=== PATIENT | female | born 1965 | race Caucasian/White ===

== ENCOUNTER 2019-12-08 11:33 | Inpatient (IN) | payer BC, OTHER ==
[2019-12-08] MEDS ORDERED: Sodium Chloride 0.9% 10 ML Syringe FLUSH PRN (12:09)
--- NOTE | 2019-12-08 12:21 | EDM.PDOC ---
ED HPI GENERAL MEDICAL PROBLEM - General Chief Complaint: Lower Extremity Injury/Pain Stated Complaint: R FOOT SKIN COMPLAINT Time Seen by Provider: 12/08/19 11:42 Source of Information: Reports: Patient History Limitations: Reports: No Limitations - History of Present Illness INITIAL COMMENTS - FREE TEXT/NARRATIVE: Patient is a 54-year-old female who presents with complaints of a diabetic foot ulcer to the medial aspect of her right great toe. She states she first noticed the area approximately 1 week ago. At that time it was a small purple blister on the posterior aspect of the toe. Since that time it has been getting progressively larger. It has doubled in size since this Wednesday. She does have some diabetic neuropathy to that toe. States she chronically has a callus in the area of the infection. The area is not painful as she has limited sensation. She denies any fever or chills, however she did vomit one time yesterday after a hypoglycemic episode. She has been feeling more fatigued and achy for the last week, however would not describe it as flulike symptoms. Her blood sugars have been running higher than normal over the last week. 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 slt Right Foot Pain Score (Numeric/FACES): 2 - Related Data Allergies Allergy/AdvReac Type Severity Reaction Status Date / Time codeine Allergy Severe Nausea and Verified 12/08/19 11:45 Vomiting Home Meds: Home Meds Adalimumab [Humira] 40 units INJECT ASDIRECTED 12/08/19 [History] Cetirizine HCl [Zyrtec] 10 mg PO DAILY 12/08/19 [History] Diclofenac Sodium/Misoprostol [Arthrotec 50 mg-200 Mcg Tab] 1 tab PO BID [History] Ezetimibe 10 mg PO DAILY 12/08/19 [History] Insulin Degludec [Tresiba] 80 units INJECT BEDTIME 12/08/19 [History] Insulin Lispro [Humalog] 1 injection INJECT TID 12/08/19 [History] Levothyroxine 175 mcg PO DAILY 12/08/19 [History] Rosuvastatin [Crestor] 10 mg PO DAILY 12/08/19 [History] estradioL [Estradiol] 2 mg PO DAILY 12/08/19 [History] Past Medical History Cardiovascular History: Reports: High Cholesterol Endocrine/Metabolic History: Reports: Diabetes, Type II - Past Surgical History GI Surgical History: Reports: Cholecystectomy Female Surgical History: Reports: Hysterectomy Musculoskeletal Surgical History: Reports: Other (See Below) Other Musculoskeletal Surgeries/Procedures:: rotator cuff surgery Social & Family History - Tobacco Use Smoking Status *Q: Never Smoker - Caffeine Use Caffeine Use: Reports: Coffee - Recreational Drug Use Recreational Drug Use: No Review of Systems - Review of Systems Review Of Systems: See Below Constitutional: Denies: Chills, Fever Eyes: Reports: No Symptoms Ears: Reports: No Symptoms Nose: Reports: No Symptoms Mouth/Throat: Reports: No Symptoms Respiratory: Reports: No Symptoms Cardiovascular: Reports: No Symptoms GI/Abdominal: Reports: Nausea, Vomiting. Denies: Abdominal Pain, Diarrhea Genitourinary: Reports: No Symptoms Musculoskeletal: Reports: No Symptoms Skin: Reports: Erythema (Right great toe), Wound (Right great toe) Neurological: Reports: No Symptoms Psychiatric: Reports: No Symptoms ED EXAM, GENERAL - Physical Exam Exam: See Below Exam Limited By: No Limitations General Appearance: Alert, WD/WN, No Apparent Distress Respiratory/Chest: No Respiratory Distress, Lungs Clear, Normal Breath Sounds, No Accessory Muscle Use, Chest Non-Tender Cardiovascular: Normal Peripheral Pulses, Regular Rate, Rhythm, No Edema, No Gallop, No JVD, No Murmur, No Rub Extremities: Other (3 cm x 6 cm purple, blistered, diabetic ulcer to the lateral aspect of the right great toe. Erythema extending approximately 3 cm proximal to the blister.) Psychiatric: Normal Affect, Normal Mood Skin Exam: Warm, Dry, Intact, Normal Color, No Rash Course - Vital Signs Last Recorded V/S: Last Vital Signs Temp 98.4 F 12/08/19 11:57 Pulse 94 12/08/19 11:57 Resp 20 12/08/19 11:57 BP 144/80 H 12/08/19 11:57 Pulse Ox 96 12/08/19 11:57 - Orders/Labs/Meds Orders: Active Orders 24 hr Category Date Time Status Peripheral IV Care [RC] . DIRECTED Care 12/08/19 12:10 Active CULTURE BLOOD [BC] Stat Lab 12/08/19 12:30 Received CULTURE BLOOD [BC] Stat Lab 12/08/19 12:40 Received Pharmacy to Dose - Vancomycin Med 06/05/20 14:06 Once 1 dose .XX ONETIME ONE Sodium Chloride 0.9% [Saline Flush] Med 12/08/19 12:09 Active 10 ml FLUSH ASDIRECTED PRN Blood Culture x2 Reflex Set [OM.PC] Stat Ot 12/08/19 12:10 Ordered Peripheral IV Insertion Adult [OM.PC] Stat Ot 12/08/19 12:10 Ordered Medication Orders Sodium Chloride (Saline Flush) 10 ml FLUSH ASDIRECTED PRN PRN Reason: Keep Vein Open Labs: Laboratory Tests 12/08/19 12/08/19 12/08/19 Range/Units 12:30 12:30 12:30 WBC 8.07 (3.98-10.04) K/mm3 RBC 5.40 H (3.98-5.22) M/mm3 Hgb 14.0 (11.2-15.7) gm/dl Hct 42.7 (34.1-44.9) % MCV 79.1 L (79.4-94.8) fl MCH 25.9 (25.6-32.2) pg MCHC 32.8 (32.2-35.5) g/dl RDW Std Deviation 41.0 (36.4-46.3) fL Plt Count 151 L (182-369) K/mm3 MPV 11.3 (9.4-12.3) fl Neut % (Auto) 63.7 (34.0-71.1) % Lymph % (Auto) 24.3 (19.3-51.7) % Rock % (Auto) 8.2 (4.7-12.5) % Eos % (Auto) 3.0 (0.7-5.8) Baso % (Auto) 0.6 (0.1-1.2) % Neut # (Auto) 5.14 (1.56-6.13) K/mm3 Lymph # (Auto) 1.96 (1.18-3.74) K/mm3 Rock # (Auto) 0.66 H (0.24-0.36) K/mm3 Eos # (Auto) 0.24 (0.04-0.36) K/mm3 Baso # (Auto) 0.05 (0.01-0.08) K/mm3 ESR (0-20) mm/hr Sodium 136 (136-145) mEq/L Potassium 3.7 (3.5-5.1) mEq/L Chloride 99 (98-107) mEq/L Carbon Dioxide 28 (21-32) mEq/L Anion Gap 12.7 (5-15) BUN 14 (7-18) mg/dL Creatinine 1.1 H (0.55-1.02) mg/dL Est Cr Clr Drug Dosing 61.75 mL/min Estimated GFR (MDRD) 51 (>60) mL/min BUN/Creatinine Ratio 12.7 L (14-18) Glucose 277 H (74-106) mg/dL Lactic Acid 1.7 (0.4-2.0) mmol/L Calcium 9.1 (8.5-10.1) mg/dL Total Bilirubin 0.6 (0.2-1.0) mg/dL AST 29 (15-37) U/L ALT 33 (14-59) U/L Alkaline Phosphatase 96 (46-116) U/L C-Reactive Protein 4.6 H* (<1.0) mg/dL Total Protein 7.5 (6.4-8.2) g/dl Albumin 3.4 (3.4-5.0) g/dl Globulin 4.1 gm/dL Albumin/Globulin Ratio 0.8 L (1-2) 12/08/19 Range/Units 12:30 WBC (3.98-10.04) K/mm3 RBC (3.98-5.22) M/mm3 Hgb (11.2-15.7) gm/dl Hct (34.1-44.9) % MCV (79.4-94.8) fl MCH (25.6-32.2) pg MCHC (32.2-35.5) g/dl RDW Std Deviation (36.4-46.3) fL Plt Count (182-369) K/mm3 MPV (9.4-12.3) fl Neut % (Auto) (34.0-71.1) % Lymph % (Auto) (19.3-51.7) % Rock % (Auto) (4.7-12.5) % Eos % (Auto) (0.7-5.8) Baso % (Auto) (0.1-1.2) % Neut # (Auto) (1.56-6.13) K/mm3 Lymph # (Auto) (1.18-3.74) K/mm3 Rock # (Auto) (0.24-0.36) K/mm3 Eos # (Auto) (0.04-0.36) K/mm3 Baso # (Auto) (0.01-0.08) K/mm3 ESR 26 H (0-20) mm/hr Sodium (136-145) mEq/L Potassium (3.5-5.1) mEq/L Chloride (98-107) mEq/L Carbon Dioxide (21-32) mEq/L Anion Gap (5-15) BUN (7-18) mg/dL Creatinine (0.55-1.02) mg/dL Est Cr Clr Drug Dosing mL/min Estimated GFR (MDRD) (>60) mL/min BUN/Creatinine Ratio (14-18) Glucose (74-106) mg/dL Lactic Acid (0.4-2.0) mmol/L Calcium (8.5-10.1) mg/dL Total Bilirubin (0.2-1.0) mg/dL AST (15-37) U/L ALT (14-59) U/L Alkaline Phosphatase (46-116) U/L C-Reactive Protein (<1.0) mg/dL Total Protein (6.4-8.2) g/dl Albumin (3.4-5.0) g/dl Globulin gm/dL Albumin/Globulin Ratio (1-2) Meds: Medications Generic Name Dose Route Start Last Admin Trade Name Freq PRN Reason Stop Dose Admin Sodium Chloride 10 ml 12/08/19 12:09 Saline Flush FLUSH ASDIRECTED PRN Keep Vein Open - Re-Assessments/Exams Free Text/Narrative Re-Assessment/Exam: 12/08/19 14:11 Hematology was significant for an ESR slightly elevated at 26, creatinine 1.1, CRP 4.6. CT scan of the foot shows diffuse soft tissue swelling within the first toe presumably due to cellulitis. No acute bone abnormality seen. No focal erosions are seen to indicate osteomyelitis. There is one area on the CT that Dr. Dockery and myself reviewed which is concerning for a lytic lesion, however MRI will be needed to better evaluate. Called and spoke with hospitalist on-call, Dr. Silva. He has accepted the patient for admission. I will start her on vancomycin Departure - Departure Time of Disposition: 14:11 Disposition: Admitted As Inpatient 64 Condition: Good Clinical Impression: Diabetic foot ulcer Qualifiers: Diabetic foot ulcer location: toe Diabetes mellitus type: type 2 Laterality: right Non-pressure ulcer stage: unspecified non-pressure ulcer stage Qualified Code(s): E11.621 - Type 2 diabetes mellitus with foot ulcer; L97.519 - Non- pressure chronic ulcer of other part of right foot with unspecified severity - Discharge Information Referrals: Faye Warner NP [Primary Care Provider] - Forms: ED Department Discharge Sepsis Event Note - Evaluation Sepsis Screening Result: No Definite Risk - Focused Exam Vital Signs: Vital Signs Temp Pulse Resp BP Pulse Ox 12/08/19 11:57 98.4 F 94 20 144/80 H 96 Date Exam was Performed: 12/08/19 Time Exam was Performed: 14:06 - My Orders Last 24 Hours: My Active Orders 12/08/19 12:09 Sodium Chloride 0.9% [Saline Flush] 10 ml FLUSH ASDIRECTED PRN 12/08/19 12:10 Peripheral IV Care [RC] . DIRECTED Blood Culture x2 Reflex Set [OM.PC] Stat Peripheral IV Insertion Adult [OM.PC] Stat 12/08/19 12:30 CULTURE BLOOD [BC] Stat 12/08/19 12:40 CULTURE BLOOD [BC] Stat 12/08/19 14:06 Pharmacy to Dose - Vancomycin 1 dose .XX ONETIME ONE - Assessment/Plan Last 24 Hours: My Active Orders 12/08/19 12:09 Sodium Chloride 0.9% [Saline Flush] 10 ml FLUSH ASDIRECTED PRN 12/08/19 12:10 Peripheral IV Care [RC] . DIRECTED Blood Culture x2 Reflex Set [OM.PC] Stat Peripheral IV Insertion Adult [OM.PC] Stat 12/08/19 12:30 CULTURE BLOOD [BC] Stat 12/08/19 12:40 CULTURE BLOOD [BC] Stat 12/08/19 14:06 Pharmacy to Dose - Vancomycin 1 dose .XX ONETIME ONE
--- NOTE | 2019-12-08 12:48 | CT ---
CT right foot Technique: Multiple axial sections through the right foot were obtained. Reconstructed sagittal and coronal images were obtained. Findings: Spur is noted at the attachment of the Achilles tendon to the calcaneus. Soft tissue swelling is noted within the 1st toe. No focal bony erosions are seen within the 1st digit. Other bony structures within the right foot also show no erosions. No acute fracture is appreciated. Impression: 1. Diffuse soft tissue swelling within the 1st toe presumably due to cellulitis. 2. No acute bony abnormality is seen. No focal erosions are seen to indicate osteomyelitis. 3. Small calcaneal spur. Diagnostic code #2 This report was dictated in MDT
[2019-12-08] MEDS ORDERED: Vancomycin 1.75 GM in Sodium Chloride 0.9% 500 ML IV ONE (15:00)
[2019-12-08] MEDS ORDERED: oxyCODONE 5 MG Tab PO PRN (16:19)
[2019-12-08] MEDS ORDERED: 50% Dextrose in Water 50 ML Syringe IVPUSH PRN (16:29)
--- NOTE | 2019-12-08 16:43 | PCM.HP.2 ---
H&P History of Present Illness - General Date of Service: 12/08/19 Admit Problem/Dx: Admission Diagnosis/Problem Admission Diagnosis/Problem Diabetic foot infection - History of Present Illness Initial Comments - Free Text/Narative: 54-year-old female with history of insulin-dependent diabetes presents to the emergency department with a large blister on the right great toe. Patient states that she started an exercise program with increased walking. Because she has limited sensation in her feet she noticed that she developed a blister. Patient states that the blister has been getting progressively larger and now it has started to become erythematous streaking up to her ankle. She also complains of having increasing general malaise and fatigue. Blood sugars have been worsening. She denies any fever or chills. She denies any pain in the foot except during palpation which makes it worse. CT done in the emergency department showed diffuse soft tissue swelling within the first toe of the right foot presumably due to cellulitis. No acute bony abnormality was seen. No focal erosions are seen to indicate osteomyelitis. Small calcaneal spur. There was concerned that there still may be an osteomyelitis that was missed and the emergency provider requested admission to the hospital for vancomycin and MRI when it is available in 3 days. On presentation to the emergency department patient was afebrile with a temperature 98.4. WBC of 8.07, hemoglobin 14.0, platelet count 151. Lactic acid was 1.7, sed rate 26, and C- reactive protein was 4.6. Right Foot Pain Score (Numeric/FACES): 2 - Related Data Allergies/Adverse Reactions: Allergies Allergy/AdvReac Type Severity Reaction Status Date / Time codeine Allergy Severe Nausea and Verified 12/08/19 11:45 Vomiting Home Medications: Home Meds Adalimumab [Humira] 40 units INJECT ASDIRECTED 12/08/19 [History] Cetirizine HCl [Zyrtec] 10 mg PO DAILY 12/08/19 [History] Diclofenac Sodium/Misoprostol [Arthrotec 50 mg-200 Mcg Tab] 1 tab PO BID [History] Ezetimibe 10 mg PO DAILY 12/08/19 [History] Insulin Degludec [Tresiba] 80 units INJECT BEDTIME 12/08/19 [History] Insulin Lispro [Humalog] 1 injection INJECT TID 12/08/19 [History] Levothyroxine 175 mcg PO DAILY 12/08/19 [History] Rosuvastatin [Crestor] 10 mg PO DAILY 12/08/19 [History] estradioL [Estradiol] 2 mg PO DAILY 12/08/19 [History] Past Medical History Cardiovascular History: Reports: High Cholesterol Endocrine/Metabolic History: Reports: Diabetes, Type II - Past Surgical History GI Surgical History: Reports: Cholecystectomy Female Surgical History: Reports: Hysterectomy Musculoskeletal Surgical History: Reports: Other (See Below) Other Musculoskeletal Surgeries/Procedures:: rotator cuff surgery Social & Family History - Tobacco Use Smoking Status *Q: Never Smoker - Caffeine Use Caffeine Use: Reports: Coffee - Recreational Drug Use Recreational Drug Use: No H&P Review of Systems - Review of Systems: Review Of Systems: Comprehensive ROS is negative, except as noted in HPI. Exam - Exam Exam: See Below - Vital Signs Vital Signs: Last Vital Signs Temp 98.4 F 12/08/19 11:57 Pulse 94 12/08/19 11:57 Resp 20 12/08/19 11:57 BP 144/80 H 12/08/19 11:57 Pulse Ox 96 12/08/19 11:57 Weight: 230 lb - Exam Quality Assessment: No: Supplemental Oxygen General: Alert, Oriented, 4 HEENT: Conjunctiva Clear, EOMI, Hearing Intact, Mucosa Moist & [place] Neck: Supple, Trachea Midline, 2 Lungs: Clear to Auscultation, Normal Respiratory Effort Cardiovascular: Regular Rate, Regular Rhythm, Normal S1, Normal S2, Systolic Murmur GI/Abdominal Exam: Normal Bowel Sounds, Soft, Non-Tender, No Organomegaly, No Abnormal Bruit, No Mass, Pelvis Stable. No: No Distention (Obese) Extremities: Normal Range of Motion, Normal Capillary Refill, Other (Right great toe has a large purple blister on the dorsal aspect. It is mildly tender. There is erythema of the right great toe into the dorsal foot and ankle. Mild nonpitting edema) Neurological: Cranial Nerves Intact Neuro Extensive - Mental Status: Alert, Oriented x3 Psychiatric: Alert, Normal Affect, Normal Mood - Patient Data Lab Results Last 24 hrs: Laboratory Results - last 24 hr 12/08/19 12/08/19 12/08/19 Range/Units 12:30 12:30 12:30 WBC 8.07 (3.98-10.04) K/mm3 RBC 5.40 H (3.98-5.22) M/mm3 Hgb 14.0 (11.2-15.7) gm/dl Hct 42.7 (34.1-44.9) % MCV 79.1 L (79.4-94.8) fl MCH 25.9 (25.6-32.2) pg MCHC 32.8 (32.2-35.5) g/dl RDW Std Deviation 41.0 (36.4-46.3) fL Plt Count 151 L (182-369) K/mm3 MPV 11.3 (9.4-12.3) fl Neut % (Auto) 63.7 (34.0-71.1) % Lymph % (Auto) 24.3 (19.3-51.7) % [place] % (Auto) 8.2 (4.7-12.5) % Eos % (Auto) 3.0 (0.7-5.8) Baso % (Auto) 0.6 (0.1-1.2) % Neut # (Auto) 5.14 (1.56-6.13) K/mm3 Lymph # (Auto) 1.96 (1.18-3.74) K/mm3 [place] # (Auto) 0.66 H (0.24-0.36) K/mm3 Eos # (Auto) 0.24 (0.04-0.36) K/mm3 Baso # (Auto) 0.05 (0.01-0.08) K/mm3 ESR (0-20) mm/hr Sodium 136 (136-145) mEq/L Potassium 3.7 (3.5-5.1) mEq/L Chloride 99 (98-107) mEq/L Carbon Dioxide 28 (21-32) mEq/L Anion Gap 12.7 (5-15) BUN 14 (7-18) mg/dL Creatinine 1.1 H (0.55-1.02) mg/dL Est Cr Clr Drug Dosing 61.75 mL/min Estimated GFR (MDRD) 51 (>60) mL/min BUN/Creatinine Ratio 12.7 L (14-18) Glucose 277 H (74-106) mg/dL Lactic Acid 1.7 (0.4-2.0) mmol/L Calcium 9.1 (8.5-10.1) mg/dL Total Bilirubin 0.6 (0.2-1.0) mg/dL AST 29 (15-37) U/L ALT 33 (14-59) U/L Alkaline Phosphatase 96 (46-116) U/L C-Reactive Protein 4.6 H* (<1.0) mg/dL Total Protein 7.5 (6.4-8.2) g/dl Albumin 3.4 (3.4-5.0) g/dl Globulin 4.1 gm/dL Albumin/Globulin Ratio 0.8 L (1-2) /11/21 Range/Units 12:30 WBC (3.98-10.04) K/mm3 RBC (3.98-5.22) M/mm3 Hgb (11.2-15.7) gm/dl Hct (34.1-44.9) % MCV (79.4-94.8) fl MCH (25.6-32.2) pg MCHC (32.2-35.5) g/dl RDW Std Deviation (36.4-46.3) fL Plt Count (182-369) K/mm3 MPV (9.4-12.3) fl Neut % (Auto) (34.0-71.1) % Lymph % (Auto) (19.3-51.7) % [place] % (Auto) (4.7-12.5) % Eos % (Auto) (0.7-5.8) Baso % (Auto) (0.1-1.2) % Neut # (Auto) (1.56-6.13) K/mm3 Lymph # (Auto) (1.18-3.74) K/mm3 [place] # (Auto) (0.24-0.36) K/mm3 Eos # (Auto) (0.04-0.36) K/mm3 Baso # (Auto) (0.01-0.08) K/mm3 ESR 26 H (0-20) mm/hr Sodium (136-145) mEq/L Potassium (3.5-5.1) mEq/L Chloride (98-107) mEq/L Carbon Dioxide (21-32) mEq/L Anion Gap (5-15) BUN (7-18) mg/dL Creatinine (0.55-1.02) mg/dL Est Cr Clr Drug Dosing mL/min Estimated GFR (MDRD) (>60) mL/min BUN/Creatinine Ratio (14-18) Glucose (74-106) mg/dL Lactic Acid (0.4-2.0) mmol/L Calcium (8.5-10.1) mg/dL Total Bilirubin (0.2-1.0) mg/dL AST (15-37) U/L ALT (14-59) U/L Alkaline Phosphatase (46-116) U/L C-Reactive Protein (<1.0) mg/dL Total Protein (6.4-8.2) g/dl Albumin (3.4-5.0) g/dl Globulin gm/dL Albumin/Globulin Ratio (1-2) Result Diagrams: 12/08/19 12:30 12/08/19 12:30 Sepsis Event Note - Evaluation Sepsis Screening Result: No Definite Risk - Focused Exam Vital Signs: Vital Signs Temp Pulse Resp BP Pulse Ox 12/08/19 11:57 98.4 F 94 20 144/80 H 96 Date Exam was Performed: 12/08/19 Time Exam was Performed: 16:30 Problem List Initiated/Reviewed/Updated: Yes Orders Last 24hrs: Active Orders 24 hr Category Date Time Status Patient Status [ADT] Routine ADT 12/08/19 15:45 Active Blood Glucose Check, Bedside [RC] QIDACANDBED Care 12/08/19 16:29 Active Oxygen Therapy [RC] PRN Care 12/08/19 16:21 Active Peripheral IV Care [RC] . DIRECTED Care 12/08/19 12:10 Active Up ad Sahra [RC] ASDIRECTED Care 12/08/19 16:19 Active VTE/DVT Education [RC] PER UNIT ROUTINE Care 12/08/19 16:21 Active Vital Signs [RC] Q4H Care 12/08/19 16:21 Active PT Evaluation and Treatment [CONS] Routine Cons 12/08/19 16:19 Active Consistent Carbohydrate Diet [DIET] Diet 12/08/19 Dinner Active CBC WITH AUTO DIFF [HEME] AM Lab 12/09/19 05:11 Ordered COMPREHENSIVE METABOLIC PN,CMP [CHEM] AM Lab 12/09/19 05:11 Ordered CULTURE BLOOD [BC] Stat Lab 12/08/19 12:30 Received CULTURE BLOOD [BC] Stat Lab 12/08/19 12:40 Received MAGNESIUM [CHEM] AM Lab 12/09/19 05:11 Ordered VANCOMYCIN TROUGH [CHEM] Timed Lab 12/10/19 14:00 Ordered Acetaminophen [Tylenol] Med 12/08/19 16:19 Active 650 mg PO Q4H PRN Dextrose 50% in Water Med 12/08/19 16:29 Active 50 ml IVPUSH ASDIRECTED PRN Enoxaparin [Lovenox] Med 12/09/19 09:00 Active 40 mg SUBCUT DAILY Insulin Lispro [HumaLOG] Med 12/08/19 17:00 Ordered See Protocol SUBCUT QIDACANDBED Pharmacy to Dose - Vancomycin Med 12/08/19 14:06 Active 1 dose .XX ONETIME PRN Sodium Chloride 0.9% [Saline Flush] Med 12/08/19 12:09 Active 10 ml FLUSH ASDIRECTED PRN Vancomycin 1.25 gm Med 12/09/19 03:00 Active Sodium Chloride 0.9% [Normal Saline] 250 ml IV Q12H Vancomycin 1.75 gm Med 12/08/19 15:00 Active Sodium Chloride 0.9% [Normal Saline] 500 ml IV ONETIME oxyCODONE Med 12/08/19 16:19 Active 5 mg PO Q4H PRN Blood Culture x2 Reflex Set [OM.PC] Stat Oth 12/08/19 12:10 Ordered Peripheral IV Insertion Adult [OM.PC] Stat Oth 12/08/19 12:10 Ordered Resuscitation Status Routine Resus Stat 12/08/19 16:19 Ordered Medication Orders Acetaminophen (Tylenol) 650 mg PO Q4H PRN PRN Reason: Pain (Mild 1-3)/fever Dextrose/Water (Dextrose 50% In Water) 50 ml IVPUSH ASDIRECTED PRN PRN Reason: Hypoglycemia Enoxaparin Sodium (Lovenox) 40 mg SUBCUT DAILY MISSY Vancomycin HCl 1.75 gm/ Sodium (Chloride) 500 mls @ 250 mls/hr IV ONETIME ONE Stop: 12/08/19 16:59 Last Admin: 12/08/19 14:49 Dose: 250 mls/hr Vancomycin HCl 1.25 gm/ Sodium (Chloride) 250 mls @ 166.667 mls/hr IV Q12H MISSY Insulin Human Lispro (Humalog) 0 unit SUBCUT QIDACANDBED MISSY; Protocol Oxycodone HCl (Oxycodone) 5 mg PO Q4H PRN PRN Reason: Pain (moderate 4-6) Sodium Chloride (Saline Flush) 10 ml FLUSH ASDIRECTED PRN PRN Reason: Keep Vein Open Vancomycin HCl (Pharmacy To Dose - Vancomycin) 1 dose .XX ONETIME PRN PRN Reason: RX TO DOSE VANCO Assessment/Plan Comment:: Cellulitis right great toe Diabetic peripheral neuropathy * CT of the right great toe shows no bony erosions, but does show cellulitis * Concern still persists for osteomyelitis. * MRI not available today or on the weekend * Patient states she has very little pain sensation to her feet. * Normal white count with a mildly elevated C-reactive protein of 4.6 and sed rate of 26. * Afebrile. Plan * Admit for IV vancomycin. * CBC and C-reactive protein in the morning * Plan MRI on Wednesday * Blood cultures drawn in the emergency department * If febrile repeat blood cultures Insulin-dependent diabetes * Patient on Toujeo and NovoLog * She states she has a poor appetite over the last few days Plan * Initially cover with sliding scale insulin. * Wait till tomorrow to start long-acting insulin, Lantus, because of Toujeo as long half-life of up to 41 hours. Will start at 80% of home dose. * Give prandial insulin at 80% of home dose * Get hemoglobin A1c in the morning Hypothyroidism, postmenopausal, hyperlipidemia Continue home meds VTE prophylaxis with Lovenox CODE STATUS: Full code Disposition: Admit to floor for IV antibiotics - Mortality Measure Prognosis:: Good
[2019-12-08] MEDS ORDERED: FLU Vacc QS2019-20(6MOS+)/PF 60 MCG/0.5 ML SYRINGE IM ONE (17:00)
[2019-12-08] MEDS: Insulin Lispro 100 Units/ML 3 ML Vial SUBCUT SCH ×2 (17:52→21:11)
[2019-12-08] MEDS ORDERED: Insulin Glarg,Human.Rec.Analog 100 Unit/ML SUBCUT SCH (21:00)
[2019-12-09 07:53] LABS: HEMOGLOBIN A1C 8.1 % (4.50-6.20)
[2019-12-09] MEDS: Rosuvastatin 10 MG Tab PO SCH (08:51)
[2019-12-09] MEDS: Loratadine 10 MG Tab PO SCH (08:51)
[2019-12-09] MEDS: Enoxaparin 40 MG/0.4 ML Syringe SUBCUT SCH (08:52)
[2019-12-09] MEDS: Ezetimibe 10 MG Tab PO SCH (08:52)
[2019-12-09] MEDS: Insulin Lispro 100 Units/ML 3 ML Vial SUBCUT SCH ×5 (08:53→21:48)
[2019-12-09] MEDS ORDERED: Magnesium Sulfate/Water 2 GM in Premix Bag 1 BAG IV ONE (09:00)
[2019-12-09] MEDS: Estradiol 0.5 MG Tab PO SCH (09:50)
--- NOTE | 2019-12-09 10:35 | PCM.PN ---
- General Info Date of Service: 12/09/19 Admission Dx/Problem (Free Text): Admission Diagnosis/Problem Admission Diagnosis/Problem Diabetic foot infection Subjective Update: Patient states that she believes the blister on her right great toe is growing. There is slightly less erythema around her foot. She denies any fever or chills. Blood sugars are elevated. Functional Status: Reports: Pain Controlled - Review of Systems General: Reports: No Symptoms HEENT: Reports: No Symptoms Pulmonary: Reports: No Symptoms Cardiovascular: Reports: No Symptoms Gastrointestinal: Reports: No Symptoms Skin: Reports: Other (Right great toe has increased in size of the blister. Erythema is less pronounced and has decreased from the ankle to just the foot.) - Patient Data Vitals - Most Recent: Last Vital Signs Temp 98.1 F 12/09/19 03:35 Pulse 80 12/09/19 03:35 Resp 16 12/09/19 03:35 BP 138/82 12/09/19 03:35 Pulse Ox 93 L 12/09/19 03:35 Weight - Most Recent: 229 lb 6.4 oz I&O - Last 24 Hours: Intake & Output 12/08/19 12/09/19 12/09/19 22:59 06:59 14:59 Intake Total 550 Balance 550 Lab Results Last 24 Hours: Laboratory Results - last 24 hr 12/08/19 12/08/19 12/08/19 Range/Units 12:30 12:30 12:30 WBC 8.07 (3.98-10.04) K/mm3 RBC 5.40 H (3.98-5.22) M/mm3 Hgb 14.0 (11.2-15.7) gm/dl Hct 42.7 (34.1-44.9) % MCV 79.1 L (79.4-94.8) fl MCH 25.9 (25.6-32.2) pg MCHC 32.8 (32.2-35.5) g/dl RDW Std Deviation 41.0 (36.4-46.3) fL Plt Count 151 L (182-369) K/mm3 MPV 11.3 (9.4-12.3) fl Neut % (Auto) 63.7 (34.0-71.1) % Lymph % (Auto) 24.3 (19.3-51.7) % [place] % (Auto) 8.2 (4.7-12.5) % Eos % (Auto) 3.0 (0.7-5.8) Baso % (Auto) 0.6 (0.1-1.2) % Neut # (Auto) 5.14 (1.56-6.13) K/mm3 Lymph # (Auto) 1.96 (1.18-3.74) K/mm3 [place] # (Auto) 0.66 H (0.24-0.36) K/mm3 Eos # (Auto) 0.24 (0.04-0.36) K/mm3 Baso # (Auto) 0.05 (0.01-0.08) K/mm3 Manual Slide Review ESR (0-20) mm/hr Sodium 136 (136-145) mEq/L Potassium 3.7 (3.5-5.1) mEq/L Chloride 99 (98-107) mEq/L Carbon Dioxide 28 (21-32) mEq/L Anion Gap 12.7 (5-15) BUN 14 (7-18) mg/dL Creatinine 1.1 H (0.55-1.02) mg/dL Est Cr Clr Drug Dosing 61.75 mL/min Estimated GFR (MDRD) 51 (>60) mL/min BUN/Creatinine Ratio 12.7 L (14-18) Glucose 277 H (74-106) mg/dL POC Glucose (70-105) mg/dL Hemoglobin A1c (4.50-6.20) % Lactic Acid 1.7 (0.4-2.0) mmol/L Calcium 9.1 (8.5-10.1) mg/dL Magnesium (1.8-2.4) mg/dl Total Bilirubin 0.6 (0.2-1.0) mg/dL AST 29 (15-37) U/L ALT 33 (14-59) U/L Alkaline Phosphatase 96 (46-116) U/L C-Reactive Protein 4.6 H* (<1.0) mg/dL Total Protein 7.5 (6.4-8.2) g/dl Albumin 3.4 (3.4-5.0) g/dl Globulin 4.1 gm/dL Albumin/Globulin Ratio 0.8 L (1-2) TSH 3rd Generation (0.358-3.74) uIU/mL 12/08/19 12/08/19 12/08/19 Range/Units 12:30 17:49 21:10 WBC (3.98-10.04) K/mm3 RBC (3.98-5.22) M/mm3 Hgb (11.2-15.7) gm/dl Hct (34.1-44.9) % MCV (79.4-94.8) fl MCH (25.6-32.2) pg MCHC (32.2-35.5) g/dl RDW Std Deviation (36.4-46.3) fL Plt Count (182-369) K/mm3 MPV (9.4-12.3) fl Neut % (Auto) (34.0-71.1) % Lymph % (Auto) (19.3-51.7) % [place] % (Auto) (4.7-12.5) % Eos % (Auto) (0.7-5.8) Baso % (Auto) (0.1-1.2) % Neut # (Auto) (1.56-6.13) K/mm3 Lymph # (Auto) (1.18-3.74) K/mm3 [place] # (Auto) (0.24-0.36) K/mm3 Eos # (Auto) (0.04-0.36) K/mm3 Baso # (Auto) (0.01-0.08) K/mm3 Manual Slide Review ESR 26 H (0-20) mm/hr Sodium (136-145) mEq/L Potassium (3.5-5.1) mEq/L Chloride (98-107) mEq/L Carbon Dioxide (21-32) mEq/L Anion Gap (5-15) BUN (7-18) mg/dL Creatinine (0.55-1.02) mg/dL Est Cr Clr Drug Dosing mL/min Estimated GFR (MDRD) (>60) mL/min BUN/Creatinine Ratio (14-18) Glucose (74-106) mg/dL POC Glucose 222 H 303 H (70-105) mg/dL Hemoglobin A1c (4.50-6.20) % Lactic Acid (0.4-2.0) mmol/L Calcium (8.5-10.1) mg/dL Magnesium (1.8-2.4) mg/dl Total Bilirubin (0.2-1.0) mg/dL AST (15-37) U/L ALT (14-59) U/L Alkaline Phosphatase (46-116) U/L C-Reactive Protein (<1.0) mg/dL Total Protein (6.4-8.2) g/dl Albumin (3.4-5.0) g/dl Globulin gm/dL Albumin/Globulin Ratio (1-2) TSH 3rd Generation (0.358-3.74) uIU/mL 12/09/19 12/09/19 12/09/19 Range/Units 05:25 05:25 05:25 WBC 7.11 (3.98-10.04) K/mm3 RBC 5.12 (3.98-5.22) M/mm3 Hgb 13.4 (11.2-15.7) gm/dl Hct 40.7 (34.1-44.9) % MCV 79.5 (79.4-94.8) fl MCH 26.2 (25.6-32.2) pg MCHC 32.9 (32.2-35.5) g/dl RDW Std Deviation 40.9 (36.4-46.3) fL Plt Count 161 L (182-369) K/mm3 MPV 11.2 (9.4-12.3) fl Neut % (Auto) 55.0 (34.0-71.1) % Lymph % (Auto) 28.0 (19.3-51.7) % [place] % (Auto) 8.6 (4.7-12.5) % Eos % (Auto) 7.5 H (0.7-5.8) Baso % (Auto) 0.8 (0.1-1.2) % Neut # (Auto) 3.91 (1.56-6.13) K/mm3 Lymph # (Auto) 1.99 (1.18-3.74) K/mm3 [place] # (Auto) 0.61 H (0.24-0.36) K/mm3 Eos # (Auto) 0.53 H (0.04-0.36) K/mm3 Baso # (Auto) 0.06 (0.01-0.08) K/mm3 Manual Slide Review Normal smear ESR (0-20) mm/hr Sodium 138 (136-145) mEq/L Potassium 3.9 (3.5-5.1) mEq/L Chloride 102 (98-107) mEq/L Carbon Dioxide 27 (21-32) mEq/L Anion Gap 12.9 (5-15) BUN 13 (7-18) mg/dL Creatinine 1.0 (0.55-1.02) mg/dL Est Cr Clr Drug Dosing 67.93 mL/min Estimated GFR (MDRD) 57 (>60) mL/min BUN/Creatinine Ratio 13.0 L (14-18) Glucose 229 H (74-106) mg/dL POC Glucose (70-105) mg/dL Hemoglobin A1c 8.10 H (4.50-6.20) % Lactic Acid (0.4-2.0) mmol/L Calcium 8.7 (8.5-10.1) mg/dL Magnesium 1.7 L (1.8-2.4) mg/dl Total Bilirubin 0.7 (0.2-1.0) mg/dL AST 30 (15-37) U/L ALT 35 (14-59) U/L Alkaline Phosphatase 94 (46-116) U/L C-Reactive Protein (<1.0) mg/dL Total Protein 7.1 (6.4-8.2) g/dl Albumin 3.2 L (3.4-5.0) g/dl Globulin 3.9 gm/dL Albumin/Globulin Ratio 0.8 L (1-2) TSH 3rd Generation 0.049 L (0.358-3.74) uIU/mL 12/09/19 Range/Units 05:41 WBC (3.98-10.04) K/mm3 RBC (3.98-5.22) M/mm3 Hgb (11.2-15.7) gm/dl Hct (34.1-44.9) % MCV (79.4-94.8) fl MCH (25.6-32.2) pg MCHC (32.2-35.5) g/dl RDW Std Deviation (36.4-46.3) fL Plt Count (182-369) K/mm3 MPV (9.4-12.3) fl Neut % (Auto) (34.0-71.1) % Lymph % (Auto) (19.3-51.7) % [place] % (Auto) (4.7-12.5) % Eos % (Auto) (0.7-5.8) Baso % (Auto) (0.1-1.2) % Neut # (Auto) (1.56-6.13) K/mm3 Lymph # (Auto) (1.18-3.74) K/mm3 [place] # (Auto) (0.24-0.36) K/mm3 Eos # (Auto) (0.04-0.36) K/mm3 Baso # (Auto) (0.01-0.08) K/mm3 Manual Slide Review ESR (0-20) mm/hr Sodium (136-145) mEq/L Potassium (3.5-5.1) mEq/L Chloride (98-107) mEq/L Carbon Dioxide (21-32) mEq/L Anion Gap (5-15) BUN (7-18) mg/dL Creatinine (0.55-1.02) mg/dL Est Cr Clr Drug Dosing mL/min Estimated GFR (MDRD) (>60) mL/min BUN/Creatinine Ratio (14-18) Glucose (74-106) mg/dL POC Glucose 232 H (70-105) mg/dL Hemoglobin A1c (4.50-6.20) % Lactic Acid (0.4-2.0) mmol/L Calcium (8.5-10.1) mg/dL Magnesium (1.8-2.4) mg/dl Total Bilirubin (0.2-1.0) mg/dL AST (15-37) U/L ALT (14-59) U/L Alkaline Phosphatase (46-116) U/L C-Reactive Protein (<1.0) mg/dL Total Protein (6.4-8.2) g/dl Albumin (3.4-5.0) g/dl Globulin gm/dL Albumin/Globulin Ratio (1-2) TSH 3rd Generation (0.358-3.74) uIU/mL Med Orders - Current: Current Medications Acetaminophen (Tylenol) 650 mg PO Q4H PRN PRN Reason: Pain (Mild 1-3)/fever Dextrose/Water (Dextrose 50% In Water) 50 ml IVPUSH ASDIRECTED PRN PRN Reason: Hypoglycemia Ezetimibe (Zetia) 10 mg PO DAILY [facility] Last Admin: 06/06/20 08:52 Dose: 10 mg Enoxaparin Sodium (Lovenox) 40 mg SUBCUT DAILY [facility] Last Admin: 12/09/19 08:52 Dose: 40 mg Estradiol (Estradiol) 2 mg PO DAILY [facility] Last Admin: 12/09/19 09:50 Dose: 2 mg Vancomycin HCl 1.25 gm/ Sodium (Chloride) 250 mls @ 166.667 mls/hr IV Q12H [facility] Last Admin: 12/09/19 03:36 Dose: 166.667 mls/hr Magnesium Sulfate 2 gm/ Premix 50 mls @ 25 mls/hr IV ONETIME ONE Stop: 12/09/19 10:59 Last Admin: 12/09/19 09:51 Dose: 25 mls/hr Insulin Glargine (Lantus) 40 unit SUBCUT BEDTIME [facility] Last Admin: 12/08/19 21:12 Dose: 40 units Insulin Human Lispro (Humalog) 0 unit SUBCUT QIDACANDBED [facility]; Protocol Last Admin: 12/09/19 08:53 Dose: 4 units Levothyroxine Sodium (Levothyroxine) 150 mcg PO ACBREAKFAST [facility] Loratadine (Claritin) 10 mg PO DAILY [facility] Last Admin: 12/09/19 08:51 Dose: 10 mg Oxycodone HCl (Oxycodone) 5 mg PO Q4H PRN PRN Reason: Pain (moderate 4-6) Rosuvastatin Calcium (Crestor) 10 mg PO DAILY [facility] Last Admin: 12/09/19 08:51 Dose: 10 mg Sodium Chloride (Saline Flush) 10 ml FLUSH ASDIRECTED PRN PRN Reason: Keep Vein Open Vancomycin HCl (Pharmacy To Dose - Vancomycin) 0 dose .XX ASDIRECTED PRN PRN Reason: RX TO DOSE VANCOMYCIN Discontinued Medications Vancomycin HCl 1.75 gm/ Sodium (Chloride) 500 mls @ 250 mls/hr IV ONETIME ONE Stop: 12/08/19 16:59 Last Admin: 12/08/19 14:49 Dose: 250 mls/hr Influenza Virus Vaccine (Pharmacy To Dose - Influenza Vaccine) 0 each IM ONETIME ONE Stop: 12/08/19 16:59 Last Admin: 12/09/19 04:48 Dose: Not Given Influenza Virus Vaccine (Fluzone Quad Syringe) 60 mcg IM .ONCE ONE Stop: 12/08/19 17:01 Levothyroxine Sodium (Levothyroxine) 175 mcg PO DAILY [facility] Vancomycin HCl (Pharmacy To Dose - Vancomycin) 1 dose .XX ONETIME PRN PRN Reason: RX TO DOSE VANCO Stop: 12/08/19 17:00 - Exam Quality Assessment: No: Supplemental Oxygen General: Alert, Oriented HEENT: Pupils Equal, Mucous Membr. Moist/[place] Neck: Supple Lungs: Clear to Auscultation, Normal Respiratory Effort Cardiovascular: Regular Rate, Regular Rhythm GI/Abdominal Exam: Normal Bowel Sounds, Soft, Non-Tender, No Organomegaly, No Distention, No Abnormal Bruit, No Mass Extremities: Normal Capillary Refill, Pedal Edema (1+), Other (Right great toe has increased in size of the blister. Erythema is less pronounced and has decreased from the ankle to just the foot.) Peripheral Pulses: 1+: Posterior Tibial (L), Posterior Tibial (R), Dorsalis Pedis (L), Dorsalis Pedis (R) Skin: Warm Psy/Mental Status: Alert, Normal Affect, Normal Mood Sepsis Event Note - Evaluation Sepsis Screening Result: No Definite Risk - Focused Exam Vital Signs: Vital Signs Temp Pulse Resp BP Pulse Ox 12/09/19 03:35 98.1 F 80 16 138/82 93 L Date Exam was Performed: 12/09/19 Time Exam was Performed: 15:18 - Problem List Review Problem List Initiated/Reviewed/Updated: Yes - My Orders Last 24 Hours: My Active Orders 12/08/19 16:19 Up ad Sahra [RC] ASDIRECTED PT Evaluation and Treatment [CONS] Routine Acetaminophen [Tylenol] 650 mg PO Q4H PRN oxyCODONE 5 mg PO Q4H PRN Resuscitation Status Routine 12/08/19 16:21 Oxygen Therapy [RC] PRN VTE/DVT Education [RC] PER UNIT ROUTINE Vital Signs [RC] Q4HR 12/08/19 16:29 Blood Glucose Check, Bedside [RC] QIDACANDBED Dextrose 50% in Water 50 ml IVPUSH ASDIRECTED PRN 12/08/19 16:58 Influenza Vaccine Charge [RC] .DISCHARGE 12/08/19 17:00 Insulin Lispro [HumaLOG] See Protocol SUBCUT QIDACANDBED Pharmacy to Dose - Vancomycin 0 dose .XX ASDIRECTED PRN 12/08/19 21:00 Insulin Glarg,Human.Rec.Analog [LantUS] 40 unit SUBCUT BEDTIME 12/08/19 Dinner Consistent Carbohydrate Diet [DIET] 12/09/19 03:00 Vancomycin 1.25 gm Sodium Chloride 0.9% [Normal Saline] 250 ml IV Q12H 12/09/19 09:00 Enoxaparin [Lovenox] 40 mg SUBCUT DAILY Ezetimibe [Zetia] 10 mg PO DAILY Loratadine [Claritin] 10 mg PO DAILY Magnesium Sulfate/Water [Magnesium Sulfate in Water Premix] 2 gm Premix Bag 1 bag IV ONETIME Rosuvastatin [Crestor] 10 mg PO DAILY estradioL 2 mg PO DAILY 12/09/19 10:34 Consult to Physician [CONS] Routine 12/09/19 10:35 Notify Provider Consults [RC] ASDIRECTED 12/10/19 06:00 Levothyroxine 150 mcg PO ACBREAKFAST - Plan Plan:: Cellulitis right great toe Diabetic peripheral neuropathy * CT of the right great toe shows no bony erosions, but does show cellulitis * Concern still persists for osteomyelitis. * MRI not available today or on the weekend * Patient states she has very little pain sensation to her feet. * Normal white count with a mildly elevated C-reactive protein of 4.6 and sed rate of 26. * Afebrile. * Negative blood cultures x1 day Plan * Admit for IV vancomycin. * CBC and C-reactive protein in the morning * Plan MRI on Wednesday morning * Blood cultures drawn in the emergency department * If febrile repeat blood cultures * Consult Dr. Kruse in surgery for debridement Insulin-dependent diabetes * Patient on Toujeo and NovoLog * She states she has a poor appetite over the last few days * Hemoglobin A1c 8.1 Plan * Initially cover with sliding scale insulin. * Increase Lantus to 50 units at night * Give prandial insulin at 7 units after each meal Hypothyroidism * TSH 0.049 * Home levothyroxine 175 mcg daily Plan * Decrease levothyroxine to 150 mcg daily * Repeat TSH in 6 to 8 weeks Postmenopausal, hyperlipidemia Continue home meds VTE prophylaxis with Lovenox CODE STATUS: Full code Disposition: Admit to floor for IV antibiotics
--- NOTE | 2019-12-09 12:30 | PCM.PRNOTE ---
- Free Text/Narrative Note: Date: 12/09/2019 Procedure: bedside debridement of right great toe diabetic wound A blister measuring about 4 cm in diameter on the dorsum of the right great toe was incised with scissors, and about 30 cc of maroon-colored old blood was drained. There was no significant foul odor noted. The devitalized skin was debrided with scissors circumferentially, and the wound bed appeared perfused and had good sensation. An adjacent callous on the medial aspect of the plantar surface of the toe was debrided sharply with scissors. There was a space deep to this filled with a small amount of caseous, necrotic debris. The area was unroofed. The end of a kerlix wrap was moistened with water and packed at the site of the wound, which after debridement measured about 3 x 4 x 0.5 cm. The dry portion of the wrap was wrapped around the foot to secure the dressing. The patient tolerated the procedure well. Reed Kruse MD General Surgery
--- NOTE | 2019-12-09 12:36 | PCM.CONS ---
H&P History of Present Illness - General Date of Service: 12/09/19 Admit Problem/Dx: Admission Diagnosis/Problem Admission Diagnosis/Problem Diabetic foot infection Source of Information: Patient, Provider History Limitations: Reports: No Limitations - History of Present Illness Other HPI/Comments: Patient with diabetes and peripheral neuropathy and chronic right toe ulcer with callus is admitted for cellulitis at the area with large blister with apparent hemorrhagic contents. The blister has been getting bigger each day for the past few days. She has minimal associated pain. Radiographs show no evidence of osteomyelitis. Right Foot Pain Score (Numeric/FACES): 2 - Related Data Allergies/Adverse Reactions: Allergies Allergy/AdvReac Type Severity Reaction Status Date / Time codeine AdvReac Mild Nausea and Verified 12/08/19 17:02 Vomiting Home Medications: Home Meds Adalimumab [Humira] 40 units INJECT ASDIRECTED 12/08/19 [History] Cetirizine HCl [Zyrtec] 10 mg PO DAILY 12/08/19 [History] Diclofenac Sodium/Misoprostol [Arthrotec 50 mg-200 Mcg Tab] 1 tab PO BID [History] Ezetimibe 10 mg PO DAILY 12/08/19 [History] Insulin Degludec [Tresiba] 80 units INJECT BEDTIME 12/08/19 [History] Insulin Lispro [Humalog] 1 injection INJECT TID 12/08/19 [History] Levothyroxine 175 mcg PO DAILY 12/08/19 [History] Rosuvastatin [Crestor] 10 mg PO DAILY 12/08/19 [History] estradioL [Estradiol] 2 mg PO DAILY 12/08/19 [History] Past Medical History Cardiovascular History: Reports: High Cholesterol Endocrine/Metabolic History: Reports: Diabetes, Type II Other Endocrine/Metabolic History: neuropathy - Infectious Disease History Infectious Disease History: Reports: Chicken Pox, Influenza, Measles, Mumps - Past Surgical History GI Surgical History: Reports: Cholecystectomy Female Surgical History: Reports: Hysterectomy Musculoskeletal Surgical History: Reports: Other (See Below) Other Musculoskeletal Surgeries/Procedures:: rotator cuff surgery Social & Family History - Family History Family Medical History: Noncontributory - Tobacco Use Smoking Status *Q: Never Smoker - Caffeine Use Caffeine Use: Reports: Coffee Caffeine Use Comment: Several times a week - Recreational Drug Use Recreational Drug Use: No H&P Review of Systems - Review of Systems: Review Of Systems: See Below General: Reports: No Symptoms Skin: Reports: Erythema, Wound Exam - Exam Exam: See Below - Vital Signs Vital Signs: Last Vital Signs Temp 36.7 C 12/09/19 03:35 Pulse 80 12/09/19 03:35 Resp 16 12/09/19 03:35 BP 138/82 12/09/19 03:35 Pulse Ox 93 L 12/09/19 03:35 Weight: 104.054 kg - Exam General: Alert, Oriented, Cooperative Neck: Trachea Midline Lungs: Normal Respiratory Effort Cardiovascular: Regular Rate Skin: Other (onychomycosis. Right great toe is erythematous, with wel circumscribed bullous lesion, fluctuant, with apparent underlying hematoma. There is surrounding erythema and a darkly discolored callus adjacent to the bulla with small central area of ulceration ) Psychiatric: Alert, Normal Mood - Patient Data Lab Results Last 24 hrs: Laboratory Results - last 24 hr 12/08/19 12/08/19 12/08/19 Range/Units 12:30 12:30 12:30 WBC 8.07 (3.98-10.04) K/mm3 RBC 5.40 H (3.98-5.22) M/mm3 Hgb 14.0 (11.2-15.7) gm/dl Hct 42.7 (34.1-44.9) % MCV 79.1 L (79.4-94.8) fl MCH 25.9 (25.6-32.2) pg MCHC 32.8 (32.2-35.5) g/dl RDW Std Deviation 41.0 (36.4-46.3) fL Plt Count 151 L (182-369) K/mm3 MPV 11.3 (9.4-12.3) fl Neut % (Auto) 63.7 (34.0-71.1) % Lymph % (Auto) 24.3 (19.3-51.7) % [place] % (Auto) 8.2 (4.7-12.5) % Eos % (Auto) 3.0 (0.7-5.8) Baso % (Auto) 0.6 (0.1-1.2) % Neut # (Auto) 5.14 (1.56-6.13) K/mm3 Lymph # (Auto) 1.96 (1.18-3.74) K/mm3 [place] # (Auto) 0.66 H (0.24-0.36) K/mm3 Eos # (Auto) 0.24 (0.04-0.36) K/mm3 Baso # (Auto) 0.05 (0.01-0.08) K/mm3 Manual Slide Review ESR (0-20) mm/hr Sodium 136 (136-145) mEq/L Potassium 3.7 (3.5-5.1) mEq/L Chloride 99 (98-107) mEq/L Carbon Dioxide 28 (21-32) mEq/L Anion Gap 12.7 (5-15) BUN 14 (7-18) mg/dL Creatinine 1.1 H (0.55-1.02) mg/dL Est Cr Clr Drug Dosing 61.75 mL/min Estimated GFR (MDRD) 51 (>60) mL/min BUN/Creatinine Ratio 12.7 L (14-18) Glucose 277 H (74-106) mg/dL POC Glucose (70-105) mg/dL Hemoglobin A1c (4.50-6.20) % Lactic Acid 1.7 (0.4-2.0) mmol/L Calcium 9.1 (8.5-10.1) mg/dL Magnesium (1.8-2.4) mg/dl Total Bilirubin 0.6 (0.2-1.0) mg/dL AST 29 (15-37) U/L ALT 33 (14-59) U/L Alkaline Phosphatase 96 (46-116) U/L C-Reactive Protein 4.6 H* (<1.0) mg/dL Total Protein 7.5 (6.4-8.2) g/dl Albumin 3.4 (3.4-5.0) g/dl Globulin 4.1 gm/dL Albumin/Globulin Ratio 0.8 L (1-2) TSH 3rd Generation (0.358-3.74) uIU/mL 12/08/19 12/08/19 12/08/19 Range/Units 12:30 17:49 21:10 WBC (3.98-10.04) K/mm3 RBC (3.98-5.22) M/mm3 Hgb (11.2-15.7) gm/dl Hct (34.1-44.9) % MCV (79.4-94.8) fl MCH (25.6-32.2) pg MCHC (32.2-35.5) g/dl RDW Std Deviation (36.4-46.3) fL Plt Count (182-369) K/mm3 MPV (9.4-12.3) fl Neut % (Auto) (34.0-71.1) % Lymph % (Auto) (19.3-51.7) % [place] % (Auto) (4.7-12.5) % Eos % (Auto) (0.7-5.8) Baso % (Auto) (0.1-1.2) % Neut # (Auto) (1.56-6.13) K/mm3 Lymph # (Auto) (1.18-3.74) K/mm3 [place] # (Auto) (0.24-0.36) K/mm3 Eos # (Auto) (0.04-0.36) K/mm3 Baso # (Auto) (0.01-0.08) K/mm3 Manual Slide Review ESR 26 H (0-20) mm/hr Sodium (136-145) mEq/L Potassium (3.5-5.1) mEq/L Chloride (98-107) mEq/L Carbon Dioxide (21-32) mEq/L Anion Gap (5-15) BUN (7-18) mg/dL Creatinine (0.55-1.02) mg/dL Est Cr Clr Drug Dosing mL/min Estimated GFR (MDRD) (>60) mL/min BUN/Creatinine Ratio (14-18) Glucose (74-106) mg/dL POC Glucose 222 H 303 H (70-105) mg/dL Hemoglobin A1c (4.50-6.20) % Lactic Acid (0.4-2.0) mmol/L Calcium (8.5-10.1) mg/dL Magnesium (1.8-2.4) mg/dl Total Bilirubin (0.2-1.0) mg/dL AST (15-37) U/L ALT (14-59) U/L Alkaline Phosphatase (46-116) U/L C-Reactive Protein (<1.0) mg/dL Total Protein (6.4-8.2) g/dl Albumin (3.4-5.0) g/dl Globulin gm/dL Albumin/Globulin Ratio (1-2) TSH 3rd Generation (0.358-3.74) uIU/mL 12/09/19 12/09/19 12/09/19 Range/Units 05:25 05:25 05:25 WBC 7.11 (3.98-10.04) K/mm3 RBC 5.12 (3.98-5.22) M/mm3 Hgb 13.4 (11.2-15.7) gm/dl Hct 40.7 (34.1-44.9) % MCV 79.5 (79.4-94.8) fl MCH 26.2 (25.6-32.2) pg MCHC 32.9 (32.2-35.5) g/dl RDW Std Deviation 40.9 (36.4-46.3) fL Plt Count 161 L (182-369) K/mm3 MPV 11.2 (9.4-12.3) fl Neut % (Auto) 55.0 (34.0-71.1) % Lymph % (Auto) 28.0 (19.3-51.7) % [place] % (Auto) 8.6 (4.7-12.5) % Eos % (Auto) 7.5 H (0.7-5.8) Baso % (Auto) 0.8 (0.1-1.2) % Neut # (Auto) 3.91 (1.56-6.13) K/mm3 Lymph # (Auto) 1.99 (1.18-3.74) K/mm3 [place] # (Auto) 0.61 H (0.24-0.36) K/mm3 Eos # (Auto) 0.53 H (0.04-0.36) K/mm3 Baso # (Auto) 0.06 (0.01-0.08) K/mm3 Manual Slide Review Normal smear ESR (0-20) mm/hr Sodium 138 (136-145) mEq/L Potassium 3.9 (3.5-5.1) mEq/L Chloride 102 (98-107) mEq/L Carbon Dioxide 27 (21-32) mEq/L Anion Gap 12.9 (5-15) BUN 13 (7-18) mg/dL Creatinine 1.0 (0.55-1.02) mg/dL Est Cr Clr Drug Dosing 67.93 mL/min Estimated GFR (MDRD) 57 (>60) mL/min BUN/Creatinine Ratio 13.0 L (14-18) Glucose 229 H (74-106) mg/dL POC Glucose (70-105) mg/dL Hemoglobin A1c 8.10 H (4.50-6.20) % Lactic Acid (0.4-2.0) mmol/L Calcium 8.7 (8.5-10.1) mg/dL Magnesium 1.7 L (1.8-2.4) mg/dl Total Bilirubin 0.7 (0.2-1.0) mg/dL AST 30 (15-37) U/L ALT 35 (14-59) U/L Alkaline Phosphatase 94 (46-116) U/L C-Reactive Protein (<1.0) mg/dL Total Protein 7.1 (6.4-8.2) g/dl Albumin 3.2 L (3.4-5.0) g/dl Globulin 3.9 gm/dL Albumin/Globulin Ratio 0.8 L (1-2) TSH 3rd Generation 0.049 L (0.358-3.74) uIU/mL 12/09/19 12/09/19 Range/Units 05:41 11:51 WBC (3.98-10.04) K/mm3 RBC (3.98-5.22) M/mm3 Hgb (11.2-15.7) gm/dl Hct (34.1-44.9) % MCV (79.4-94.8) fl MCH (25.6-32.2) pg MCHC (32.2-35.5) g/dl RDW Std Deviation (36.4-46.3) fL Plt Count (182-369) K/mm3 MPV (9.4-12.3) fl Neut % (Auto) (34.0-71.1) % Lymph % (Auto) (19.3-51.7) % [place] % (Auto) (4.7-12.5) % Eos % (Auto) (0.7-5.8) Baso % (Auto) (0.1-1.2) % Neut # (Auto) (1.56-6.13) K/mm3 Lymph # (Auto) (1.18-3.74) K/mm3 [place] # (Auto) (0.24-0.36) K/mm3 Eos # (Auto) (0.04-0.36) K/mm3 Baso # (Auto) (0.01-0.08) K/mm3 Manual Slide Review ESR (0-20) mm/hr Sodium (136-145) mEq/L Potassium (3.5-5.1) mEq/L Chloride (98-107) mEq/L Carbon Dioxide (21-32) mEq/L Anion Gap (5-15) BUN (7-18) mg/dL Creatinine (0.55-1.02) mg/dL Est Cr Clr Drug Dosing mL/min Estimated GFR (MDRD) (>60) mL/min BUN/Creatinine Ratio (14-18) Glucose (74-106) mg/dL POC Glucose 232 H 248 H (70-105) mg/dL Hemoglobin A1c (4.50-6.20) % Lactic Acid (0.4-2.0) mmol/L Calcium (8.5-10.1) mg/dL Magnesium (1.8-2.4) mg/dl Total Bilirubin (0.2-1.0) mg/dL AST (15-37) U/L ALT (14-59) U/L Alkaline Phosphatase (46-116) U/L C-Reactive Protein (<1.0) mg/dL Total Protein (6.4-8.2) g/dl Albumin (3.4-5.0) g/dl Globulin gm/dL Albumin/Globulin Ratio (1-2) TSH 3rd Generation (0.358-3.74) uIU/mL Result Diagrams: 12/09/19 05:25 12/09/19 05:25 Sepsis Event Note - Evaluation Sepsis Screening Result: No Definite Risk - Focused Exam Vital Signs: Vital Signs Temp Pulse Resp BP Pulse Ox 12/09/19 03:35 36.7 C 80 16 138/82 93 L Date Exam was Performed: 12/09/19 Time Exam was Performed: 12:30 *Q Meaningful Use (ADM) - VTE Risk Assess *Q Each Risk Factor Represents 1 Point: Age 41 - 59 years Total Score 1 Point Risk Factors: 1 Consult PN Assessment/Plan Procedures: Procedures CO/MEMBANE DIFFUSE CAPACITY (11/04/18) COMPREHEN METABOLIC PANEL (11/24/17) EVALUATION OF WHEEZING (11/04/18) LIPID PANEL (11/24/17) MRI NECK SPINE W/O DYE (05/11/19) ROUTINE VENIPUNCTURE (11/24/17) Problem List Initiated/Reviewed/Updated: Yes Plan: Bedside debridement of devitalized tissue with wet to dry dressing. Continue antibiotics for cellulitis. Plan for MRI of the foot tomorrow to further evaluate for osteomyelitis. Wound check/dressing change tomorrow AM.
[2019-12-09] MEDS ORDERED: Insulin Glarg,Human.Rec.Analog 100 Unit/ML SUBCUT SCH (21:00)
[2019-12-09] MEDS ORDERED: Ondansetron 4 MG/2 ML SDV IVPUSH ONE (22:18)
[2019-12-10] MEDS: Acetaminophen 325 MG Tab PO PRN (04:00)
[2019-12-10] MEDS: Insulin Lispro 100 Units/ML 3 ML Vial SUBCUT SCH ×7 (09:35→21:40)
[2019-12-10] MEDS: Enoxaparin 40 MG/0.4 ML Syringe SUBCUT SCH (09:36)
--- NOTE | 2019-12-10 09:50 | PCM.SN.2 ---
- Free Text/Narrative Note: Right foot dressing changed this morning. No additional debridement required; the base of the wound appears bright red, well perfused. No purulence or significant devitalized tissue noted. An aquacel dressing was applied and wrapped with a kerlix wrap. Plan for dressing to stay in place until the afternoon of 12/11/2019. Patient is scheduled for MRI of the foot to assess for osteomyelitis tomorrow.
[2019-12-10] MEDS: Rosuvastatin 10 MG Tab PO SCH (11:32)
[2019-12-10] MEDS: Loratadine 10 MG Tab PO SCH (11:32)
[2019-12-10] MEDS: Levothyroxine 75 MCG Tab PO SCH (11:32)
[2019-12-10] MEDS: Estradiol 0.5 MG Tab PO SCH (11:33)
[2019-12-10] MEDS: Ezetimibe 10 MG Tab PO SCH (11:33)
--- NOTE | 2019-12-10 11:47 | PCM.PN ---
- General Info Date of Service: 12/10/19 Admission Dx/Problem (Free Text): Admission Diagnosis/Problem Admission Diagnosis/Problem Diabetic foot infection Subjective Update: Patient had some nausea and vomiting this morning. She has mild abdominal pain. She skipped breakfast because of it. Blood sugars have been in the 200s. Functional Status: Reports: Pain Controlled - Review of Systems General: Denies: Fever, Chills HEENT: Reports: No Symptoms Pulmonary: Reports: No Symptoms Cardiovascular: Reports: No Symptoms Gastrointestinal: Reports: Nausea, Vomiting Musculoskeletal: Reports: No Symptoms Skin: Reports: Other (Wound) - Patient Data Vitals - Most Recent: Last Vital Signs Temp 98.4 F 12/10/19 07:29 Pulse 86 12/10/19 07:29 Resp 16 12/10/19 07:29 BP 127/62 12/10/19 07:29 Pulse Ox 92 L 12/10/19 07:29 Weight - Most Recent: 227 lb 11.2 oz I&O - Last 24 Hours: Intake & Output 12/09/19 12/10/19 12/10/19 22:59 06:59 14:59 Intake Total 920 850 Output Total 600 1000 Balance 320 -150 Lab Results Last 24 Hours: Laboratory Results - last 24 hr 12/09/19 12/09/19 12/09/19 Range/Units 11:51 16:25 20:36 WBC (3.98-10.04) K/mm3 RBC (3.98-5.22) M/mm3 Hgb (11.2-15.7) gm/dl Hct (34.1-44.9) % MCV (79.4-94.8) fl MCH (25.6-32.2) pg MCHC (32.2-35.5) g/dl RDW Std Deviation (36.4-46.3) fL Plt Count (182-369) K/mm3 MPV (9.4-12.3) fl Neut % (Auto) (34.0-71.1) % Lymph % (Auto) (19.3-51.7) % [place] % (Auto) (4.7-12.5) % Eos % (Auto) (0.7-5.8) Baso % (Auto) (0.1-1.2) % Neut # (Auto) (1.56-6.13) K/mm3 Lymph # (Auto) (1.18-3.74) K/mm3 [place] # (Auto) (0.24-0.36) K/mm3 Eos # (Auto) (0.04-0.36) K/mm3 Baso # (Auto) (0.01-0.08) K/mm3 Sodium (136-145) mEq/L Potassium (3.5-5.1) mEq/L Chloride (98-107) mEq/L Carbon Dioxide (21-32) mEq/L Anion Gap (5-15) BUN (7-18) mg/dL Creatinine (0.55-1.02) mg/dL Est Cr Clr Drug Dosing mL/min Estimated GFR (MDRD) (>60) mL/min BUN/Creatinine Ratio (14-18) Glucose (74-106) mg/dL POC Glucose 248 H 357 H 274 H (70-105) mg/dL Calcium (8.5-10.1) mg/dL Magnesium (1.8-2.4) mg/dl 12/10/19 12/10/19 12/10/19 Range/Units 04:03 05:26 05:26 WBC 4.67 (3.98-10.04) K/mm3 RBC 5.07 (3.98-5.22) M/mm3 Hgb 13.0 (11.2-15.7) gm/dl Hct 40.3 (34.1-44.9) % MCV 79.5 (79.4-94.8) fl MCH 25.6 (25.6-32.2) pg MCHC 32.3 (32.2-35.5) g/dl RDW Std Deviation 39.8 (36.4-46.3) fL Plt Count 142 L (182-369) K/mm3 MPV 11.4 (9.4-12.3) fl Neut % (Auto) 48.4 (34.0-71.1) % Lymph % (Auto) 33.4 (19.3-51.7) % [place] % (Auto) 8.8 (4.7-12.5) % Eos % (Auto) 8.1 H (0.7-5.8) Baso % (Auto) 0.9 (0.1-1.2) % Neut # (Auto) 2.26 (1.56-6.13) K/mm3 Lymph # (Auto) 1.56 (1.18-3.74) K/mm3 [place] # (Auto) 0.41 H (0.24-0.36) K/mm3 Eos # (Auto) 0.38 H (0.04-0.36) K/mm3 Baso # (Auto) 0.04 (0.01-0.08) K/mm3 Sodium 140 (136-145) mEq/L Potassium 4.1 (3.5-5.1) mEq/L Chloride 104 (98-107) mEq/L Carbon Dioxide 26 (21-32) mEq/L Anion Gap 14.1 (5-15) BUN 13 (7-18) mg/dL Creatinine 1.0 (0.55-1.02) mg/dL Est Cr Clr Drug Dosing 67.93 mL/min Estimated GFR (MDRD) 57 (>60) mL/min BUN/Creatinine Ratio 13.0 L (14-18) Glucose 210 H (74-106) mg/dL POC Glucose 198 H (70-105) mg/dL Calcium 8.5 (8.5-10.1) mg/dL Magnesium 1.8 (1.8-2.4) mg/dl 12/10/19 12/10/19 Range/Units 09:22 11:28 WBC (3.98-10.04) K/mm3 RBC (3.98-5.22) M/mm3 Hgb (11.2-15.7) gm/dl Hct (34.1-44.9) % MCV (79.4-94.8) fl MCH (25.6-32.2) pg MCHC (32.2-35.5) g/dl RDW Std Deviation (36.4-46.3) fL Plt Count (182-369) K/mm3 MPV (9.4-12.3) fl Neut % (Auto) (34.0-71.1) % Lymph % (Auto) (19.3-51.7) % [place] % (Auto) (4.7-12.5) % Eos % (Auto) (0.7-5.8) Baso % (Auto) (0.1-1.2) % Neut # (Auto) (1.56-6.13) K/mm3 Lymph # (Auto) (1.18-3.74) K/mm3 [place] # (Auto) (0.24-0.36) K/mm3 Eos # (Auto) (0.04-0.36) K/mm3 Baso # (Auto) (0.01-0.08) K/mm3 Sodium (136-145) mEq/L Potassium (3.5-5.1) mEq/L Chloride (98-107) mEq/L Carbon Dioxide (21-32) mEq/L Anion Gap (5-15) BUN (7-18) mg/dL Creatinine (0.55-1.02) mg/dL Est Cr Clr Drug Dosing mL/min Estimated GFR (MDRD) (>60) mL/min BUN/Creatinine Ratio (14-18) Glucose (74-106) mg/dL POC Glucose 235 H 282 H (70-105) mg/dL Calcium (8.5-10.1) mg/dL Magnesium (1.8-2.4) mg/dl [place] Results Last 24 Hours: Microbiology 12/08/19 12:30 Aerobic Blood Culture - Preliminary Blood - Venous NO GROWTH AFTER 1 DAY Anaerobic Blood Culture - Preliminary NO GROWTH AFTER 1 DAY 12/08/19 12:40 Aerobic Blood Culture - Preliminary Blood - Venous - Lab Draw NO GROWTH AFTER 1 DAY Anaerobic Blood Culture - Preliminary NO GROWTH AFTER 1 DAY Med Orders - Current: Current Medications Acetaminophen (Tylenol) 650 mg PO Q4H PRN PRN Reason: Pain (Mild 1-3)/fever Last Admin: 12/10/19 04:00 Dose: 650 mg Dextrose/Water (Dextrose 50% In Water) 50 ml IVPUSH ASDIRECTED PRN PRN Reason: Hypoglycemia Ezetimibe (Zetia) 10 mg PO DAILY [facility] Last Admin: 12/10/19 11:33 Dose: 10 mg Enoxaparin Sodium (Lovenox) 40 mg SUBCUT DAILY [facility] Last Admin: 12/10/19 09:36 Dose: 40 mg Estradiol (Estradiol) 2 mg PO DAILY [facility] Last Admin: 12/10/19 11:33 Dose: 2 mg Vancomycin HCl 1.25 gm/ Sodium (Chloride) 250 mls @ 166.667 mls/hr IV Q12H [facility] Last Admin: 12/10/19 03:49 Dose: 166.667 mls/hr Insulin Glargine (Lantus) 50 unit SUBCUT BEDTIME [facility] Last Admin: 12/09/19 21:47 Dose: 50 unit Insulin Human Lispro (Humalog) 0 unit SUBCUT QIDACANDBED [facility]; Protocol Last Admin: 12/10/19 11:42 Dose: 6 units Insulin Human Lispro (Humalog) 7 unit SUBCUT TIDPC [facility] Last Admin: 12/10/19 11:38 Dose: 7 units Levothyroxine Sodium (Levothyroxine) 150 mcg PO ACBREAKFAST [facility] Last Admin: 12/10/19 11:32 Dose: 150 mcg Loratadine (Claritin) 10 mg PO DAILY [facility] Last Admin: 12/10/19 11:32 Dose: 10 mg Oxycodone HCl (Oxycodone) 5 mg PO Q4H PRN PRN Reason: Pain (moderate 4-6) Last Admin: 12/09/19 16:01 Dose: 5 mg Rosuvastatin Calcium (Crestor) 10 mg PO DAILY [facility] Last Admin: 12/10/19 11:32 Dose: 10 mg Sodium Chloride (Saline Flush) 10 ml FLUSH ASDIRECTED PRN PRN Reason: Keep Vein Open Vancomycin HCl (Pharmacy To Dose - Vancomycin) 0 dose .XX ASDIRECTED PRN PRN Reason: RX TO DOSE VANCOMYCIN Discontinued Medications Vancomycin HCl 1.75 gm/ Sodium (Chloride) 500 mls @ 250 mls/hr IV ONETIME ONE Stop: 12/08/19 16:59 Last Admin: 12/08/19 14:49 Dose: 250 mls/hr Magnesium Sulfate 2 gm/ Premix 50 mls @ 25 mls/hr IV ONETIME ONE Stop: 12/09/19 10:59 Last Admin: 12/09/19 09:51 Dose: 25 mls/hr Influenza Virus Vaccine (Pharmacy To Dose - Influenza Vaccine) 0 each IM ONETIME ONE Stop: 12/08/19 16:59 Last Admin: 12/09/19 04:48 Dose: Not Given Influenza Virus Vaccine (Fluzone Quad [id number] Syringe) 60 mcg IM .ONCE ONE Stop: 12/08/19 17:01 Insulin Glargine (Lantus) 40 unit SUBCUT BEDTIME [facility] Last Admin: 12/08/19 21:12 Dose: 40 units Levothyroxine Sodium (Levothyroxine) 175 mcg PO DAILY [facility] Ondansetron HCl (Zofran) 4 mg IVPUSH ONETIME ONE Stop: 12/09/19 22:19 Last Admin: 12/09/19 22:27 Dose: 4 mg Vancomycin HCl (Pharmacy To Dose - Vancomycin) 1 dose .XX ONETIME PRN PRN Reason: RX TO DOSE VANCO Stop: 12/08/19 17:00 - Exam General: Alert, Oriented HEENT: Pupils Equal, Mucous Membr. Moist/[place] Neck: Supple Lungs: Clear to Auscultation, Normal Respiratory Effort Cardiovascular: Regular Rate, Regular Rhythm GI/Abdominal Exam: Normal Bowel Sounds, Soft, No Distention, Tender (Mild diffuse tenderness) Extremities: Normal Inspection, No Pedal Edema, Normal Capillary Refill Wound/Incisions: Drainage Psy/Mental Status: Alert, Normal Affect, Normal Mood Sepsis Event Note - Evaluation Sepsis Screening Result: No Definite Risk - Focused Exam Vital Signs: Vital Signs Temp Pulse Resp BP Pulse Ox 12/10/19 07:29 98.4 F 86 16 127/62 92 L 12/10/19 03:54 98.4 F 88 14 129/82 92 L Date Exam was Performed: 12/10/19 Time Exam was Performed: 14:42 - Problem List Review Problem List Initiated/Reviewed/Updated: Yes - My Orders Last 24 Hours: My Active Orders 12/09/19 19:00 Insulin Lispro [HumaLOG] 7 unit SUBCUT TIDPC 12/09/19 21:00 Insulin Glarg,Human.Rec.Analog [LantUS] 50 unit SUBCUT BEDTIME 12/10/19 06:00 Levothyroxine 150 mcg PO ACBREAKFAST - Plan Plan:: Cellulitis right great toe Diabetic peripheral neuropathy * CT of the right great toe shows no bony erosions, but does show cellulitis * Concern still persists for osteomyelitis. * MRI not available today or on the weekend * Patient states she has very little pain sensation to her feet. * Normal white count with a mildly elevated C-reactive protein of 4.6 and sed rate of 26. * Afebrile. * Negative blood cultures after 2 days Plan * Admit for IV vancomycin. * CBC and C-reactive protein in the morning * Plan MRI on Wednesday * Blood cultures drawn in the emergency department * If febrile repeat blood cultures * Consult Dr. Kruse in surgery for debridement Insulin-dependent type II diabetes * Patient on Toujeo and NovoLog * She states she has a poor appetite over the last few days * Hemoglobin A1c 8.1 Plan * Sliding scale insulin. * Increase Lantus to 50 units at night * Give prandial insulin at 7 units after each meal Hypothyroidism * TSH 0.049 * Home levothyroxine 175 mcg daily Plan * Decrease levothyroxine to 150 mcg daily * Repeat TSH in 6 to 8 weeks Nausea and vomiting * Unknown cause * Abdominal exam benign Plan * Monitor closely and if it worsens then may consider imaging. Postmenopausal, hyperlipidemia Continue home meds VTE prophylaxis with Lovenox CODE STATUS: Full code Disposition: Admit to floor for IV antibiotics
[2019-12-10] MEDS ORDERED: Insulin Glarg,Human.Rec.Analog 100 Unit/ML SUBCUT SCH (21:00)
[2019-12-11] MEDS: Levothyroxine 75 MCG Tab PO SCH (06:05)
[2019-12-11] MEDS: Acetaminophen 325 MG Tab PO PRN (06:34)
[2019-12-11] MEDS: Estradiol 0.5 MG Tab PO SCH (08:19)
[2019-12-11] MEDS: Ezetimibe 10 MG Tab PO SCH (08:20)
[2019-12-11] MEDS: Rosuvastatin 10 MG Tab PO SCH (08:20)
[2019-12-11] MEDS: Insulin Lispro 100 Units/ML 3 ML Vial SUBCUT SCH ×3 (08:21→12:26)
[2019-12-11] MEDS: Loratadine 10 MG Tab PO SCH (08:21)
[2019-12-11] MEDS: Enoxaparin 40 MG/0.4 ML Syringe SUBCUT SCH (08:24)
[2019-12-11] MEDS ORDERED: Gadobenate Dimeglumine 529 MG/ML 20 ML SDV IVPUSH ONE (08:59)
[2019-12-11] MEDS ORDERED: Insulin Lispro 100 Units/ML 3 ML Vial SUBCUT SCH ×2 (09:00→11:00)
[2019-12-11] MEDS ORDERED: Sodium Chloride 0.9% 10 ML Syringe FLUSH SCH (09:00)
[2019-12-11] MEDS ORDERED: Magnesium Hydroxide 400 MG/5 ML Susp 30 ML Cup PO ONE ×2 (09:14→12:30)
--- NOTE | 2019-12-11 10:07 | MR ---
MRI foot (without and with intravenous contrast) Technique: T1 and fat suppressed inversion recovery sagittal; T2 fat suppressed, T2 and proton weighted coronal; T1 and T2 fat suppressed axial; postcontrast T1 fat-suppressed axial, coronal and sagittal images were obtained. Findings: Soft tissue edema is seen. Slight increased signal is seen within the phalanx of the 3rd through 5th toes which is most likely artifact. No definite areas of abnormal enhancement are seen within the bony structures. No focal erosions are appreciated. Minimal degenerative change within the 1st MTP joint is seen. Diffuse soft tissue enhancement is seen compatible with cellulitis. Impression: 1. Soft tissue edema and soft tissue enhancement compatible with cellulitis. 2. No definite findings of osteomyelitis are seen at this time. Diagnostic code #3 This report was dictated in MDT
--- NOTE | 2019-12-11 15:21 | PCM.DCSUM1 ---
Discharge Summary - Hospital Course HPI Initial Comments: 54-year-old female with history of insulin-dependent diabetes presents to the emergency department with a large blister on the right great toe. Patient states that she started an exercise program with increased walking. Because she has limited sensation in her feet she noticed that she developed a blister. Patient states that the blister has been getting progressively larger and now it has started to become erythematous streaking up to her ankle. She also complains of having increasing general malaise and fatigue. Blood sugars have been worsening. She denies any fever or chills. She denies any pain in the foot except during palpation which makes it worse. CT done in the emergency department showed diffuse soft tissue swelling within the first toe of the right foot presumably due to cellulitis. No acute bony abnormality was seen. No focal erosions are seen to indicate osteomyelitis. Small calcaneal spur. There was concerned that there still may be an osteomyelitis that was missed and the emergency provider requested admission to the hospital for vancomycin and MRI when it is available in 3 days. On presentation to the emergency department patient was afebrile with a temperature 98.4. WBC of 8.07, hemoglobin 14.0, platelet count 151. Lactic acid was 1.7, sed rate 26, and C- reactive protein was 4.6. Diagnosis: Stroke: No - Discharge Data Discharge Date: 12/11/19 Discharge Disposition: Home, Self-Care 01 Condition: Good - Referral to Home Health Primary Care Physician: Faye Warner NP - Discharge Diagnosis/Problem(s) (1) Diabetic foot ulcer SNOMED Code(s): 003870614 ICD Code: E11.621 - TYPE 2 DIABETES MELLITUS WITH FOOT ULCER; L97.509 - NON- PRESSURE CHRONIC ULCER OTH PRT UNSP FOOT W UNSP SEVERITY Status: Acute Current Visit: Yes Qualifiers: Diabetic foot ulcer location: toe Diabetes mellitus type: type 2 Laterality: right Non-pressure ulcer stage: unspecified non-pressure ulcer stage Qualified Code(s): E11.621 - Type 2 diabetes mellitus with foot ulcer; L97.519 - Non-pressure chronic ulcer of other part of right foot with unspecified severity - Patient Summary/Data Consults: Consultations 12/08/19 16:19 PT Evaluation and Treatment [CONS] Routine 12/09/19 10:34 Consult to Physician [CONS] Routine 12/11/19 11:14 Consult to Physical Therapy [PT Evaluation and Treatment] [CONS] Routine Hospital Course: Patient was admitted to the hospital and placed on vancomycin. Dr. Kruse in surgery was consulted and he debrided the blister on the right great toe. Patient had an MRI which showed no osteomyelitis. She was switched to Bactrim and Augmentin for antibiotics and discharged home. She will follow-up with her primary care provider in 3 days. - Patient Instructions Diet: Diabetic Diet Activity: As Tolerated Driving: May Drive Today Showering/Bathing: May Shower Other/Special Instructions: Follow-up with your primary care provider on . Take antibiotics as prescribed. - Discharge Plan *PRESCRIPTION DRUG MONITORING PROGRAM REVIEWED*: No *COPY OF PRESCRIPTION DRUG MONITORING REPORT IN PATIENT TAO: No Prescriptions/Med Rec: Amoxicillin/Clavulanate K [Augmentin 875-125 MG] 1 tab PO BID #14 tablet Levothyroxine 150 mcg PO ACBREAKFAST #30 tab Sulfamethoxazole/Trimethoprim [Bactrim Ds Tablet] 1 each PO BID #14 tablet Home Medications: Home Meds Adalimumab [Humira] 40 units INJECT ASDIRECTED 12/08/19 [History] Cetirizine HCl [Zyrtec] 10 mg PO DAILY 12/08/19 [History] Diclofenac Sodium/Misoprostol [Arthrotec 50 mg-200 Mcg Tab] 1 tab PO BID [History] Ezetimibe 10 mg PO DAILY 12/08/19 [History] Insulin Degludec [Tresiba] 80 units INJECT BEDTIME 12/08/19 [History] Insulin Lispro [Humalog] 1 injection INJECT TID 12/08/19 [History] Rosuvastatin [Crestor] 10 mg PO DAILY 12/08/19 [History] estradioL [Estradiol] 2 mg PO DAILY 12/08/19 [History] Amoxicillin/Clavulanate K [Augmentin 875-125 MG] 1 tab PO BID #14 tablet [Rx] Levothyroxine 150 mcg PO ACBREAKFAST #30 tab 12/11/19 [Rx] Sulfamethoxazole/Trimethoprim [Bactrim Ds Tablet] 1 each PO BID #14 tablet 12/10 [Rx] Oxygen Therapy Mode: Room Air Patient Handouts: Diabetes Mellitus and Foot Care, Diabetes Mellitus and Sick Day Management, Sepsis, Self Care, Adult Referrals: Faye Warner NP [Primary Care Provider] - 12/14/19 2:45 am (Please follow up with Faye Warner NP on December 13 a5 2:45pm. ) - Discharge Summary/Plan Comment DC Time >30 min.: Yes Discharge Summary/Plan Comment: Follow-up with primary care provider in 3 days. You were prescribed 2 new antibiotics. Stay on those until you are seen by your primary care provider and discussed continuation at that time. You will need follow-up on your right great toe wound. - Patient Data Vitals - Most Recent: Last Vital Signs Temp 98.1 F 12/11/19 15:12 Pulse 86 12/11/19 15:12 Resp 20 12/11/19 15:12 BP 131/70 12/11/19 15:12 Pulse Ox 98 12/11/19 15:12 Weight - Most Recent: 229 lb I&O - Last 24 hours: Intake & Output 12/11/19 12/11/19 12/11/19 06:59 14:59 22:59 Intake Total 550 1620 Output Total 1200 400 Balance -650 1220 Lab Results - Last 24 hrs: Laboratory Results - last 24 hr 12/10/19 12/10/19 12/11/19 Range/Units 16:35 21:10 06:39 Glucose 355 H (74-106) mg/dL POC Glucose 265 H 214 H (70-105) mg/dL 12/11/19 Range/Units 11:27 Glucose (74-106) mg/dL POC Glucose 262 H (70-105) mg/dL [facility] Results - Last 24 hrs: Microbiology 12/08/19 12:30 Aerobic Blood Culture - Preliminary Blood - Venous NO GROWTH AFTER 3 DAYS Anaerobic Blood Culture - Preliminary NO GROWTH AFTER 3 DAYS 12/08/19 12:40 Aerobic Blood Culture - Preliminary Blood - Venous - Lab Draw NO GROWTH AFTER 3 DAYS Anaerobic Blood Culture - Preliminary NO GROWTH AFTER 3 DAYS Med Orders - Current: Current Medications Acetaminophen (Tylenol) 650 mg PO Q4H PRN PRN Reason: Pain (Mild 1-3)/fever Last Admin: 12/11/19 06:34 Dose: 650 mg Dextrose/Water (Dextrose 50% In Water) 50 ml IVPUSH ASDIRECTED PRN PRN Reason: Hypoglycemia Ezetimibe (Zetia) 10 mg PO DAILY [facility] Last Admin: 12/11/19 08:20 Dose: 10 mg Enoxaparin Sodium (Lovenox) 40 mg SUBCUT DAILY [facility] Last Admin: 12/11/19 08:24 Dose: 40 mg Estradiol (Estradiol) 2 mg PO DAILY [facility] Last Admin: 12/11/19 08:19 Dose: 2 mg Insulin Glargine (Lantus) 60 unit SUBCUT BEDTIME [facility] Last Admin: 12/10/19 21:41 Dose: 60 units Insulin Human Lispro (Humalog) 0 unit SUBCUT QIDACANDBED [facility]; Protocol Last Admin: 12/11/19 12:26 Dose: 6 units Insulin Human Lispro (Humalog) 15 unit SUBCUT TIDAC [facility] Last Admin: 12/11/19 12:26 Dose: 15 units Levothyroxine Sodium (Levothyroxine) 150 mcg PO ACBREAKFAST [facility] Last Admin: 12/11/19 06:05 Dose: 150 mcg Loratadine (Claritin) 10 mg PO DAILY [facility] Last Admin: 12/11/19 08:21 Dose: 10 mg Oxycodone HCl (Oxycodone) 5 mg PO Q4H PRN PRN Reason: Pain (moderate 4-6) Last Admin: 12/09/19 16:01 Dose: 5 mg Rosuvastatin Calcium (Crestor) 10 mg PO DAILY [facility] Last Admin: 12/11/19 08:20 Dose: 10 mg Sodium Chloride (Saline Flush) 10 ml FLUSH ASDIRECTED PRN PRN Reason: Keep Vein Open Sodium Chloride (Saline Flush) 10 ml FLUSH ASDIRECTED [facility] Last Admin: 12/11/19 09:44 Dose: 10 ml Discontinued Medications Gadobenate Dimeglumine (Multihance) 20 ml IVPUSH ONETIME ONE Stop: 12/11/19 09:00 Last Admin: 12/11/19 09:44 Dose: 20 ml Vancomycin HCl 1.75 gm/ Sodium (Chloride) 500 mls @ 250 mls/hr IV ONETIME ONE Stop: 12/08/19 16:59 Last Admin: 12/08/19 14:49 Dose: 250 mls/hr Vancomycin HCl 1.25 gm/ Sodium (Chloride) 250 mls @ 166.667 mls/hr IV Q12H [facility] Last Admin: 12/11/19 02:14 Dose: 166.667 mls/hr Magnesium Sulfate 2 gm/ Premix 50 mls @ 25 mls/hr IV ONETIME ONE Stop: 12/09/19 10:59 Last Admin: 12/09/19 09:51 Dose: 25 mls/hr Influenza Virus Vaccine (Pharmacy To Dose - Influenza Vaccine) 0 each IM ONETIME ONE Stop: 12/08/19 16:59 Last Admin: 12/09/19 04:48 Dose: Not Given Influenza Virus Vaccine (Fluzone Quad [id number] Syringe) 60 mcg IM .ONCE ONE Stop: 12/08/19 17:01 Insulin Glargine (Lantus) 40 unit SUBCUT BEDTIME [facility] Last Admin: 12/08/19 21:12 Dose: 40 units Insulin Glargine (Lantus) 50 unit SUBCUT BEDTIME [facility] Last Admin: 12/09/19 21:47 Dose: 50 unit Insulin Human Lispro (Humalog) 7 unit SUBCUT TIDPC [facility] Last Admin: 12/11/19 08:23 Dose: 7 units Insulin Human Lispro (Humalog) 12 unit SUBCUT TIDPC [facility] Levothyroxine Sodium (Levothyroxine) 175 mcg PO DAILY [facility] Magnesium Hydroxide (Milk Of Magnesia) 30 ml PO ONETIME ONE Stop: 12/11/19 09:15 Last Admin: 12/11/19 12:28 Dose: Not Given Magnesium Hydroxide (Milk Of Magnesia) 30 ml PO ONETIME ONE Stop: 12/11/19 12:31 Last Admin: 12/11/19 13:33 Dose: 30 ml Ondansetron HCl (Zofran) 4 mg IVPUSH ONETIME ONE Stop: 12/09/19 22:19 Last Admin: 12/09/19 22:27 Dose: 4 mg Vancomycin HCl (Pharmacy To Dose - Vancomycin) 1 dose .XX ONETIME PRN PRN Reason: RX TO DOSE [facility]ANCO Stop: 12/08/19 17:00 Vancomycin HCl (Pharmacy To Dose - Vancomycin) 0 dose .XX ASDIRECTED PRN PRN Reason: RX TO DOSE VANCOMYCIN
== END 2019-12-11 16:05 | disposition home or self-care (01) | DRG 623 ==
LOC: JD.ED 11:33 → JD.MS 15:45
PROVIDERS: ADMIT Family Medicine; ATTEND Family Medicine
PROC: 0JBQ0ZZ Excision of Right Foot Subcutaneous Tissue and Fascia, Open Approach (ICD-10-PCS; principal; 2019-12-09)
DX: E11.69 Type 2 diabetes mellitus with other specified complication (principal); M86.8X7 Other osteomyelitis, ankle and foot; L03.031 Cellulitis of right toe; E11.621 Type 2 diabetes mellitus with foot ulcer; L97.519 Non-pressure chronic ulcer of other part of right foot with unspecified severity; E03.9 Hypothyroidism, unspecified; E78.00 Pure hypercholesterolemia, unspecified; E78.5 Hyperlipidemia, unspecified; N95.9 Unspecified menopausal and perimenopausal disorder; E11.42 Type 2 diabetes mellitus with diabetic polyneuropathy; M77.31 Calcaneal spur, right foot; Z90.49 Acquired absence of other specified parts of digestive tract; Z79.890 Hormone replacement therapy; Z79.899 Other long term (current) drug therapy; Z79.4 Long term (current) use of insulin; Z90.710 Acquired absence of both cervix and uterus
CPT/HCPCS: 36415; 73700-26-RT; 73700-RT; 73720-26-RT; 73720-RT; 80048; 80053; 80202; 82947; 82962; 83036; 83605; 83735; 84443; 85025; 85652; 86140; 87040; 96365; 97162-GP; 99222; 99232; 99239; 99283; 99284-25; A9270-GY; A9577; J1650; J1815-GY; J2405; J3370; J3475; J7040; J7050